=== PATIENT | female | born 2000 | race American Indian/Alaskan Native ===

== ENCOUNTER 2021-11-30 14:20 | Emergency (ER) | payer SELFPAY ==
[2021-11-30 14:53] VITALS: BP 139/75
[2021-11-30 15:53] LABS: Basophils % (Auto) 0.5 % (0.0-1.8); Eosinophils % (Auto) 0.9 % (0.0-4.3); Hemoglobin 12.2 gm/dl (10.1-14.3); Lymphocytes # (Auto) 1.4 K/mm3 (1.2-5.4); Lymphocytes % (Auto) 32.3 % (13.4-35.0); Mean Corpuscular HGB Conc 33 % (30-34); Mean Corpuscular Volume 91 fl (79-97); Monocytes # (Auto) 0.4 K/mm3 (0.0-0.8); Monocytes % (Auto) 10.4 % (0.0-7.3); Platelet Count 231 K/mm3 (140-440); Red Blood Count 4.08 M/mm3 (3.65-5.03); Red Cell Distribution Width 15.1 % (13.2-15.2)
[2021-11-30 16:14] LABS: Alanine Aminotransferase 15 units/L (7-56); Albumin 3.9 g/dL (3.9-5); Blood Urea Nitrogen 9 mg/dL (7-17); Hemolysis Index 12
[2021-11-30 16:16] LABS: BUN/Creatinine Ratio 13
[2021-11-30] MEDS ORDERED: ACETAMINOPHEN 325 MG TAB ONE (18:45)
[2021-11-30] MEDS ORDERED: ACETAMINOPHEN 325 MG TAB PO ONE (18:47)
--- NOTE | 2021-11-30 20:09 | XRay Report ---
CHEST 1 VIEW 11/30/2021 6:49 PM INDICATION / CLINICAL INFORMATION: Dyspnea. COMPARISON: None available. FINDINGS: SUPPORT DEVICES: None. HEART / MEDIASTINUM: No significant abnormality. LUNGS / PLEURA: Questionable nodular opacity in the left lower lung measuring 2.7 cm. No pneumothorax . ADDITIONAL FINDINGS: No significant additional findings. IMPRESSION: 1. Questionable nodular opacity in the left lower lung, possibly representing nipple shadow. Recommen d repeat PA and lateral images with nipple markers. Signer Name: Janak Melgoza MD Signed: 11/30/2021 8:04 PM Workstation Name: [id number]
--- NOTE | 2021-12-03 13:49 | Electrocardiograph Report ---
[facility] Test Date: 2021-11-30 Test Time: 14:53:06 Pat Name: TAMICA FISCHER Department: Room: Gender: F [employer] Worker: FELICITA : 2000 Requested By: SUKHWINDER NICOLAS Order Number: [id number] Reading MD: Km Ragsdale Measurements Intervals Shanks Rate: 76 P: 44 NE: 156 QRS: 40 QRSD: 79 T: 42 QT: 376 QTc: 424 Interpretive Statements Sinus rhythm No previous ECG available for comparison Electronically Signed On 12-03-2021 13:49:16 EDT by Km Ragsdale
== END 2021-11-30 21:24 | disposition left against medical advice (07) ==
LOC: ED 14:20
DX: R11.10 Vomiting, unspecified (principal); R07.89 Other chest pain; Z53.21 Procedure and treatment not carried out due to patient leaving prior to being seen by health care provider
CPT/HCPCS: 36415; 71045; 80053; 84484; 84702; 85025; 93005